=== PATIENT | male | born 1985 | race Caucasian/White ===

== ENCOUNTER 2016-07-06 16:43 | Inpatient (IN) | payer OTHER ==
[~2016-07-06] VITALS: Ht 180.3 cm; Wt 140.6 kg
[2016-07-06 17:49] LABS: BASOPHIL % 0.3 % (0-2); PLATELET COUNT 293 x10^3mcL (130-400); RED CELL DISTRIBUTION WIDTH 13.8 % (11.5-14.5)
[2016-07-06 18:04] LABS: BILIRUBIN TOTAL 0.7 mg/dL (0.20-1.00); CALCIUM 9.9 mg/dL (8.5-10.1); CARBON DIOXIDE 21.9 mmol/L (21-32); CREATININE SERUM 2.4 mg/dL (0.7-1.3); MAGNESIUM 2.3 mg/dL (1.8-2.4); POTASSIUM SERUM 5.5 mmol/L (3.5-5.1)
[2016-07-06 18:05] LABS: TOTAL PROTEIN, SERUM 8.4 g/dL (6.4-8.2)
[2016-07-06 19:56] LABS: CHOLESTEROL/HDL RATIO 3.9; PHOSPHOROUS 1.2 mg/dL (2.5-4.9)
[2016-07-06 20:06] LABS: FREE T4 1.43 ng/dL (0.76-1.46); FREE THYROXINE INDEX 3.7 ug/dL (1.4-4.5); T4(THYROXINE) 10.8 ug/dL (4.7-13.3)
[2016-07-06 20:07] LABS: T3 TOTAL 1.35 ng/mL
[2016-07-06 20:14] VITALS: BP 161/92
[2016-07-06 21:14] VITALS: BP 161/92
[2016-07-07 05:30] VITALS: BP 115/57
[2016-07-07 06:11] LABS: BASOPHIL % 0.6 % (0-2); PLATELET COUNT 236 x10^3mcL (130-400); RED CELL DISTRIBUTION WIDTH 14.1 % (11.5-14.5)
[2016-07-07 06:24] LABS: CALCIUM 8.2 mg/dL (8.5-10.1); CARBON DIOXIDE 25.5 mmol/L (21-32); CHLORIDE SERUM 109 mmol/L (98-107); CREATININE SERUM 1.4 mg/dL (0.7-1.3); GFR1 > 60 mL/min; GLUCOSE SERUM 115 mg/dL (74-106); PHOSPHOROUS 4.5 mg/dL (2.5-4.9); POTASSIUM SERUM 3.6 mmol/L (3.5-5.1); SODIUM SERUM 144 mmol/L (136-145)
[2016-07-07 09:40] VITALS: BP 126/69
[2016-07-07 14:08] VITALS: BP 121/60
[2016-07-07 14:08] LABS: microscopic required? NO
[2016-07-07 14:13] LABS: UA SPECIFIC GRAVITY 1.025 (1.005-1.035); urine erythrocyte NEGATIVE (NEGATIVE)
[2016-07-07 14:25] LABS: AMPHETAMINE QUAL UR NONE DETECTED (NEG <=1000)
[2016-07-07 17:07] VITALS: BP 121/60
== END 2016-07-07 18:09 | disposition home or self-care (01) | DRG 557 ==
LOC: ED 16:43 → DU 19:28
PROVIDERS: Emergency Medicine; ADMIT Family Medicine
DX: M62.82 Rhabdomyolysis (principal); N17.0 Acute kidney failure with tubular necrosis; R65.10 Systemic inflammatory response syndrome (SIRS) of non-infectious origin without acute organ dysfunction; E87.1 Hypo-osmolality and hyponatremia; E86.0 Dehydration; E87.5 Hyperkalemia; I10 Essential (primary) hypertension; E83.39 Other disorders of phosphorus metabolism; F15.21 Other stimulant dependence, in remission
CPT/HCPCS: 80307; 83880; 84439; J1885; J2270; J2405; J7030; Q0092

== ENCOUNTER 2017-01-02 12:11 | Emergency (ER) | payer OTHER ==
[~2017-01-02] VITALS: Ht 180.3 cm; Wt 138.8 kg
[2017-01-02 16:05] VITALS: BP 151/82
== END 2017-01-02 16:05 | disposition home or self-care (01) ==
LOC: ED 12:11
DX: S80.12XA Contusion of left lower leg, initial encounter (principal); X58.XXXA Exposure to other specified factors, initial encounter; Y93.89 Activity, other specified; Y92.89 Other specified places as the place of occurrence of the external cause; Y99.8 Other external cause status